=== PATIENT | female | born 1955 | race Caucasian/White ===

== ENCOUNTER 2018-09-23 19:23 | Emergency (ER) | payer OTHER ==
[~2018-09-23] VITALS: Ht 144.8 cm; Wt 79.4 kg
[~2018-09-23 19:23] MED LIST: IBUPROFEN 400400 M1 PO; NORCO 5-325 TA1 EACH PO
[2018-09-23 20:14] LABS: ABSOLUTE NEUTROPHILS 10.9 thou/uL (1.4-8.2); BASOPHILS 0.3 % (0.0-2.0); EOSINOPHILS 0.2 % (0.0-3.0); HEMATOCRIT 45.5 % (37.0-47.0); HEMOGLOBIN 15.5 gm/dL (12.0-15.0); LYMPHOCYTES 6.6 % (24.0-44.0); MCH 31.6 pg (26.0-34.0); MCHC 34.2 g/dL (28.0-37.0); MCV 92.5 fL (80.0-100.0); MONOCYTES 3.6 % (1.0-8.0); PLATELET COUNT 238 thou/uL (150-400); POLYS 89.3 % (36.0-66.0); RBC 4.92 mil/uL (4.20-5.00); RDW 12.7 % (10.5-14.5); WBC 12.2 thou/uL (4.0-11.0)
[2018-09-23 20:18] LABS: URINE CLARITY CLEAR; URINE COLOR YELLOW; URINE PROTEIN (DIPSTICK) 2+ (Negative)
[2018-09-23 20:19] LABS: URINE BILIRUBIN NEGATIVE (Negative); URINE BLOOD NEGATIVE (Negative); URINE GLUCOSE-RANDOM* NEGATIVE (Negative); URINE KETONES TRACE (Negative); URINE LEUKOCYTES-REFLEX NEGATIVE (Negative); URINE NITRITE-REFLEX NEGATIVE (Negative); URINE UROBILINOGEN 0.2 E.U./dl (0.2-1.0)
[2018-09-23 20:22] LABS: CALCIUM 9.6 mg/dL (8.5-10.1); CREATININE 0.8 mg/dL (0.6-1.0); POTASSIUM 4.2 mmol/L (3.5-5.1)
[2018-09-23 20:27] LABS: SQUAMOUS 4-10 Moderate /LPF (0-3)
[2018-09-23 20:28] LABS: ALBUMIN 4.4 g/dL (3.4-5.0); TOTAL BILIRUBIN 0.6 mg/dL (<0.1-1.0); TOTAL PROTEIN 8.2 g/dL (6.4-8.2)
[2018-09-23 20:29] LABS: CASTS None Seen /LPF (None Seen); CRYSTALS None Seen /LPF (None Seen); MUCUS 4-6 Moderate strn/LPF (None Seen); URINE RBC 0-2 Rare /HPF (0-2); URINE WBC-REFLEX 0-5 Rare /HPF (0-5)
[2018-09-23 20:37] LABS: BACTERIA-REFLEX None Seen /HPF (None Seen)
[2018-09-23] MEDS ORDERED: ULTRAM 50MG TAB50 MG PO (22:18)
[2018-09-23] MEDS ORDERED: ZOFRAN ODT4 MG PO (22:18)
[2018-09-23 22:41] VITALS: BP 132/69
== END 2018-09-23 22:44 | disposition home or self-care (01) ==
LOC: ER 19:23
PROVIDERS: Emergency Medicine
DX: A08.4 Viral intestinal infection, unspecified (principal); Z88.8 Allergy status to other drugs, medicaments and biological substances; Z88.2 Allergy status to sulfonamides